=== PATIENT | male | born 1985 | race Two or more races ===

== ENCOUNTER 2020-03-05 14:01 | Outpatient (CLI) | payer SELFPAY | END 2020-03-05 14:02 | disposition home or self-care (01) | LOC: COV 14:01 | PROVIDERS: ATTEND Family Medicine | DX: R05 Cough (principal); R06.02 Shortness of breath; M79.10 Myalgia, unspecified site; R53.83 Other fatigue; R68.83 Chills (without fever); J02.9 Acute pharyngitis, unspecified; R19.7 Diarrhea, unspecified; Z20.828 Contact with and (suspected) exposure to other viral communicable diseases ==

== ENCOUNTER 2021-08-20 16:58 | Emergency (ER) | payer SELFPAY ==
[2021-08-20 17:14] VITALS: BP 125/68
[2021-08-20] MEDS ORDERED: TETANUS/DIPHTHERIA/PERTUSSIS 0.5 ML SYRINGE IM ONE (17:27)
[2021-08-20] MEDS ORDERED: LIDOCAINE 1%-EPI 1:100000 20 ML MDV SUBQ STA (17:27)
--- NOTE | 2021-08-20 17:28 | ED Physician Documentation ---
PD HPI UPPER EXT INJURY - Stated complaint Stated Complaint: RT LEG VS CHAIN SAW - Chief complaint Chief Complaint: Laceration - History obtained from History obtained from: Patient - History of Present Illness Location: Right (35-year-old gentleman with unknown tetanus status cut his right leg with a chainsaw at home just prior to arrival.) Review of Systems Constitutional: reports: Reviewed and negative Eyes: reports: Reviewed and negative Ears: reports: Reviewed and negative Nose: reports: Reviewed and negative Throat: reports: Reviewed and negative PD PAST MEDICAL HISTORY - Past Medical History Cardiovascular: None Respiratory: Sleep apnea Endocrine/Autoimmune: None GI: None : Indwelling catheter HEENT: None Psych: None Musculoskeletal: None Derm: None - Past Surgical History Past Surgical History: Yes General: Other - Present Medications Home Medications: Ambulatory Orders Medication Instructions Recorded Confirmed Hydrocodone/Acetaminophen 1 - 2 each PO Q6H PRN #10 tablet 12/27/14 [Hydrocodon-Acetaminophen 5-325] Ibuprofen [Motrin] 800 mg PO Q8H PRN #20 tablet 12/27/14 - Allergies Allergies/Adverse Reactions: Allergies Allergy/AdvReac Type Severity Reaction Status Date / Time No Known Drug Allergies Allergy Verified 08/20/21 17:14 - Social History Does the pt smoke?: Yes Smoking Status: Current every day smoker Does the pt drink ETOH?: Yes Does the pt have substance abuse?: No - Immunizations Immunizations are current?: Yes - POLST Patient has POLST: No PD ED PE NORMAL - Vitals Vital signs reviewed: Yes - General General: Alert and oriented X 3, No acute distress - Extremities Extremities: Other (Six centimeter horizontal laceration well above the knee joint on the right leg without pulsatile bleeding. Distally has normal pedal pulses and sensation.) - Neuro Neuro: Alert and oriented X 3, Normal speech Results - Vitals Vitals: Vital Signs - 24 hr 08/20/21 17:07 Temperature 36.6 C Heart Rate 64 Respiratory 14 Rate Blood Pressure 125/68 O2 Saturation 100 Oxygen O2 Source [Without Activity] Room air O2 Source Room air Procedures - Laceration (location) RLE Length in cm: 8 Wound type: Linear Neurovascular status: Sensory intact, Motor intact, Vascular intact Anesthesia: Lidocaine 1% with epi Wound preparation: Irrigated copiously NS Skin layer closure: Penelope (10) Other: Tetanus booster given Departure - Departure Disposition: 01 Home, Self Care Clinical Impression: Laceration Condition: Good Record reviewed to determine appropriate education?: Yes Instructions: ED Laceration Ext Sutr Stap Tape Comments: Come back for any signs of infection which would include: Redness, swelling, drainage, increased pain, or fevers. You can wash it soap and water. Keep it covered and moist with bacitracin ointment which is available over the counter; avoid neosporin. Follow-up with your physician in 2-3 weeks for staple removal.
== END 2021-08-20 18:31 | disposition home or self-care (01) ==
LOC: ED 16:58
DX: S81.011A Laceration without foreign body, right knee, initial encounter (principal); W29.3XXA Contact with powered garden and outdoor hand tools and machinery, initial encounter; Y92.009 Unspecified place in unspecified non-institutional (private) residence as the place of occurrence of the external cause; Z23 Encounter for immunization; Z71.85 Encounter for immunization safety counseling; F17.200 Nicotine dependence, unspecified, uncomplicated
CPT/HCPCS: 12004; 90471; 99283

== ENCOUNTER 2022-07-24 10:22 | Emergency (ER) | payer OTHER ==
--- NOTE | 2022-07-24 12:15 | ED Physician Documentation ---
History of Present Illness - Stated complaint Stated Complaint: GROIN PX - Chief complaint Chief Complaint: General - History obtained from History obtained from: Patient - History of Present Illness Pain level max: 6 Pain level now: 4 - Additonal information Additional information: 36-year-old male presents to the emergency department complaint of left sided testicular pain. This been ongoing for the past 2 to 3 days. Complains of it being mainly dull, aching, but occasionally sharp. Has noted swelling to the left testicle as well. Denies any STD exposure. No penile discharge. Worse with palpation and movement. Nothing makes it better. Review of Systems Constitutional: denies: Fever : denies: Dysuria, Frequency, Hesitancy, Discharge Skin: denies: Rash Musculoskeletal: denies: Neck pain, Back pain Neurologic: denies: Headache PD PAST MEDICAL HISTORY - Past Medical History Past Medical History: Yes Cardiovascular: None Respiratory: Sleep apnea Endocrine/Autoimmune: None GI: None : Indwelling catheter HEENT: None Psych: None Musculoskeletal: None Derm: None - Past Surgical History Past Surgical History: Yes General: Other - Present Medications Home Medications: Ambulatory Orders Medication Instructions Recorded Confirmed Hydrocodone/Acetaminophen 1 - 2 each PO Q6H PRN #10 tablet 12/27/14 [Hydrocodon-Acetaminophen 5-325] Ibuprofen [Motrin] 800 mg PO Q8H PRN #20 tablet 12/27/14 HYDROcod/ACETAM 5/325 [Walls 5/325] 1 - 2 ea PO Q6H PRN #14 tablet 07/24/22 levoFLOXacin [Levofloxacin] 500 mg PO DAILY #10 tablet 07/24/22 - Allergies Allergies/Adverse Reactions: Allergies Allergy/AdvReac Type Severity Reaction Status Date / Time No Known Drug Allergies Allergy Verified 07/24/22 10:36 - Social History Does the pt smoke?: Yes Smoking Status: Current every day smoker Does the pt drink ETOH?: Yes Does the pt have substance abuse?: No - Immunizations Immunizations are current?: Yes - POLST Patient has POLST: No PD ED PE NORMAL - Vitals Vital signs reviewed: Yes - General General: Alert and oriented X 3, No acute distress, Well developed/nourished - HEENT HEENT: Moist mucous membranes - Neck Neck: Supple, no meningeal sign - Cardiac Cardiac: RRR, No murmur - Respiratory Respiratory: No respiratory distress, Clear bilaterally - Abdomen Abdomen: Soft, Non tender, Non distended - Male Male : Other (Right testicle is normal. The left testicle feels enlarged, diffusely tender.) - Back Back: No CVA TTP, No spinal TTP - Derm Derm: Warm and dry - Neuro Neuro: Alert and oriented X 3 - Psych Psych: Normal mood, Normal affect Results - Vitals Vitals: Vital Signs - 24 hr 07/24/22 07/24/22 10:36 12:57 Temperature 36.4 C L Heart Rate 72 71 Respiratory 18 14 Rate Blood Pressure 122/77 122/73 O2 Saturation 97 99 Oxygen O2 Source [] Room air O2 Source Room air - Labs Labs: Laboratory Tests 07/24/22 12:40 Urine Color YELLOW Urine Clarity CLEAR Urine pH 6.0 Ur Specific [place] >=1.030 H Urine Protein NEGATIVE Urine Glucose (UA) NEGATIVE Urine Ketones NEGATIVE Urine Occult Blood TRACE-INTA Urine Nitrite NEGATIVE Urine Bilirubin NEGATIVE Urine Urobilinogen 0.2 (NORMAL) Ur Leukocyte Esterase TRACE H Urine RBC 0-5 Urine WBC 11-25 H Ur Squamous Epith Cells RARE Squamous Urine Bacteria Few Urine Mucus Marked Strands Ur Microscopic Review INDICATED Urine Culture Comments INDICATED - Rads (name of study) Testicular ultrasound Radiology: Final report received, See rad report PD Medical Decision Making - ED course Complexity details: reviewed results, re-evaluated patient, considered differential, d/w patient ED course: 36-year-old male with left testicular pain. Urinalysis consistent with UTI. He states he is not sexually active. Ultrasound was ordered, no evidence of testicular torsion. He does appear to have left-sided epididymitis. As he is not sexually active and not at risk for STD/STI. We will treat him with Levaquin. We will prescribe pain medication for home as well. We will have him follow-up with his doctor for further care. Patient counseled regarding signs and symptoms for which I believe and urgent re-evaluation would be necessary. Patient with good understanding of and agreement to plan and is comfortable going home at this time This document was made in part using voice recognition software. While efforts are made to proofread this document, sound alike and grammatical errors may occur. Departure - Departure Disposition: Home, Self Care Clinical Impression: Epididymitis UTI (urinary tract infection) Qualifiers: Urinary tract infection type: acute cystitis Hematuria presence: without hematuria Qualified Code(s): N30.00 - Acute cystitis without hematuria Condition: Good Instructions: ED Epididymitis Follow-Up: your,doctor in 1 week [Other] Prescriptions: levoFLOXacin [Levofloxacin] 500 mg PO DAILY #10 tablet HYDROcod/ACETAM 5/325 [Walls 5/325] 1 - 2 ea PO Q6H PRN #14 tablet PRN Reason: Pain Comments: Your prescriptions were sent to the [facility] pharmacy. Please take all antibiotics until gone. Your ultrasound is consistent with acute epididymitis. This should start to improve in the next 24 to 48 hours. I am prescribing a short course of narcotic pain medication for you. These are potentially dangerous and addictive medications that should be used carefully. These medications may constipate you. Take an nioq-rqn-yayfijy stool softener (docusate) twice daily with plenty of water while taking these medications. If you go 24 hours without a bowel movement, take [id number] miralax, per package instructions. Do not drink or drive while taking these medications. If you received narcotic or sedating medications while in the emergency department, do not drive for 24 hours. Store this medication in a safe, secure place and out of reach of children. It is a violation of federal law to give or sell this medication to another person or to use in a manner other than prescribed. The ED will not refill narcotic prescriptions, including prescriptions lost or stolen. To dispose of unwanted medications: 1. [facility] at [address] in [place] has a medication drop box. They accept prescription medications (in pill form) Thursday through Thursday 9:00 a.m. to 5:00 p.m. 2. The [facility] [employer] [facility] accepts prescription medications (in pill form only) for disposal year round. Call for more information. 3. Contact the [facility] for the next [facility] sponsored prescription drug collection event. , [phone], or [phone]; Discharge Date/Time: 07/24/22 12:57
--- NOTE | 2022-07-24 12:40 | Ultrasound Report ---
PROCEDURE: Testicle w/Doppler INDICATIONS: testicle pain TECHNIQUE: Real-time scanning was performed of the scrotum and testicles, with image documentation. Color and p ulse Doppler interrogation was performed of both testicles. COMPARISON: None. FINDINGS: Right: Testicle is normal in size at 5.2 x 2.3 x 2.8 cm, and homogenous in echotexture. Epididymis is normal in overall size and morphology. No hydrocele or varicoceles. Overlying scrotal skin is no rmal in thickness. Left: Testicle is normal in size at 3.7 x 2.2 x 2.7 cm, and homogeneous in echotexture. Epididymis is normal in overall size and morphology. No hydrocele or varicoceles. Overlying scrotal skin is no rmal in thickness. Doppler: Color and pulse Doppler demonstrate normal and symmetric arterial flow in both testicles. Increased vascularity within the left epididymis. IMPRESSION: Findings suggestive of left-sided epididymitis. Otherwise negative examination. Reviewed by: Ta Colon MD on 07/24/2022 12:39 PM PST Approved by: Ta Colon MD on 07/24/2022 12:39 PM PST Station ID: [id number]
[2022-07-24 12:52] LABS: BILIRUBIN,URINE NEGATIVE (NEGATIVE); GLUCOSE, URINE (UA) NEGATIVE (NEGATIVE); KETONES,URINE (UA) NEGATIVE (NEGATIVE); LEUKOCYTE ESTERASE, URINE TRACE (NEGATIVE); NITRITE,URINE NEGATIVE (NEGATIVE); OCCULT BLOOD,URINE TRACE-INTA (NEGATIVE); PROTEIN,URINE NEGATIVE (NEGATIVE); UROBILINOGEN,URINE 0.2 (NORMAL) E.U./dL (NORMAL)
[2022-07-24 12:54] LABS: CLARITY,URINE CLEAR (CLEAR)
[2022-07-24 12:58] VITALS: BP 122/73
[2022-07-24 13:01] LABS: RBC,URINE 0-5 /HPF (0-5)
[2022-07-24 13:02] LABS: BACTERIA,URINE Few /HPF (None Seen); MUCUS,URINE Marked Strands; SQUAMOUS EPITHELIAL CELL,UR RARE Squamous (<= Few)
[2022-07-24 16:37] LABS: NEISSERIA GONORRHOEAE DNA NEGATIVE (NEGATIVE)
[2022-07-24 16:39] LABS: CHLAMYDIA TRACHOMATIS DNA POSITIVE (NEGATIVE)
== END 2022-07-24 12:57 | disposition home or self-care (01) ==
LOC: ED 10:22
DX: N45.1 Epididymitis (principal); N30.00 Acute cystitis without hematuria; F17.200 Nicotine dependence, unspecified, uncomplicated
CPT/HCPCS: 81001; 81003; 87086; 87491; 87591; 87661; 93975; 99283; 99284